=== PATIENT | male | born 1990 | race African-American/Black ===

== ENCOUNTER 2019-08-02 16:46 | Emergency (ER) | payer MEDICAID ==
[~2019-08-02] VITALS: Ht 167.6 cm; Wt 80.0 kg
[2019-08-02 16:53] VITALS: BP 146/96
== END 2019-08-02 18:18 | disposition left against medical advice (07) ==
LOC: ER 16:46
DX: Z53.21 Procedure and treatment not carried out due to patient leaving prior to being seen by health care provider (principal)